=== PATIENT | female | born 2000 | race Caucasian/White ===

== ENCOUNTER 2018-12-30 01:19 | Emergency (ER) | payer OTHER ==
[~2018-12-30] VITALS: Ht 162.6 cm; Wt 77.1 kg
[2018-12-30 01:20] VITALS: BP 158/75
--- NOTE | 2018-12-30 01:20 | NUR ---
ARRIVAL PATIENT PRESENTS VIA WHEELCHAIR WITH COMPLAINTS OF LEFT KNEE PAIN. STATES THAT SHE SAT DOWN AT WORK ~2200 LAST NIGHT AND "HEARD A POP" AND HAS HAD PAIN SINCE. REPORTS THAT SHE TOOK 4 TABLETS OF IBUPROFEN WITHOUT RELIEF. REPORTS PAIN IS 7/10, THROBBING AT THIS TIME. PATIENT STATES THAT SHE IS UNABLE TO BEAR WEIGHT OR MOVE EXTREMITY DUE TO PAIN. VSS. NO DISTRESS NOTED. MD CODY NOTIFIED.
[2018-12-30] MEDS ORDERED: ULTRAM PO STA (01:38)
[2018-12-30] MEDS ORDERED: ULTRAM ONE (01:41)
--- NOTE | 2018-12-30 01:45 | ER.PDOC ---
General Chief Complaint: Extremities Stated Complaint: KNEE PAIN Time seen by MD: 01:43 Source: patient Exam Limitations: no limitations History of Present Illness Initial Comments Left knee pain while sitting down at work. No fall Where: work Context: twist Severity: moderate Allergies: Coded Allergies: No Known Allergies (Unverified , 12/13/14) Past Medical History Medical History: no pertinent history Surgical History: no surgical history Social History Smoking: other Alcohol Use: none Drug Use: none Review of Systems Constitutional: no symptoms reported EENTM: no symptoms reported Respiratory: no symptoms reported Cardiovascular: no symptoms reported Gastrointestinal: no symptoms reported Musculoskeletal: see HPI All Other Systems: Reviewed and Negative Physical Exam General Appearance: Alert, No Apparent Distress Foot: nml inspection, non-tender, nml color/temp, skin intact Ankle: nml inspection, non-tender, nml ROM, no joint swelling, skin intact Knee: tenderness (left without swelling) Thigh/Hip: nml inspection Gait: normal Neuro/Vasc/Tendon: sensation nml, motor nml, no vascular compromise, tendon function nml Skin: warm/dry Head/ENT: nml inspection, pharynx nml Neck/Back: nml inspection, non-tender Abdomen: non-tender, pelvis stable Results/Orders Results/Orders Orders - MARILEE ROSS MD Tramadol Hcl (Ultram) (12/30/18 01:38) Vital Signs Date Time Temp Pulse Resp B/P (MAP) Pulse Ox O2 Delivery O2 Flow Rate FiO2 12/30/18 01:25 97.6 80 18 12/30/18 01:25 97.6 80 18 99 Room Air 12/30/18 01:20 97.6 80 18 158/75 (102) 99 Room Air Departure Time of Disposition: 01:44 Disposition: 01 HOME, SELF-CARE Impression: Primary Impression: Knee pain, left Condition: Stable Additional Instructions: Ice Ibuprofen F/U with your PCP next week Duration or Time Spent with Pa: 20 mins Problem Qualifiers Primary Impression: Knee pain, left Chronicity: acute Qualified Codes: M25.562 - Pain in left knee MARILEE ROSS MD Dec 30, 2018 01:45
[2018-12-30 02:00] VITALS: BP 124/72
--- NOTE | 2018-12-30 02:00 | NUR ---
WORK NOTE PATIENT REQUESTING WORK NOTE TIL MONDAY, EDP STATES SHE IS OK TO GO BACK TO WORK TOMORROW.
[2018-12-30 02:15] VITALS: BP 158/75
== END 2018-12-30 02:10 | disposition home or self-care (01) ==
LOC: ER 01:19
DX: M25.562 Pain in left knee (principal); X50.1XXA Overexertion from prolonged static or awkward postures, initial encounter; Y93.89 Activity, other specified; Y92.69 Other specified industrial and construction area as the place of occurrence of the external cause; Y99.0 Civilian activity done for income or pay
CPT/HCPCS: 99282; 99283

== ENCOUNTER 2021-07-07 20:42 | Emergency (ER) | payer OTHER ==
[~2021-07-07] VITALS: Ht 170.2 cm; Wt 90.7 kg
[2021-07-07 20:50] VITALS: BP 126/61
--- NOTE | 2021-07-07 20:50 | NUR ---
ARRIVAL TAKEN BY WHEELCHAIR TO ROOM. SPOUSE AT BEDSIDE. GAIT STEADY. ALERT AND ORIENTED X3. APPROXIMATELY 20WEEKS (12/16/2020) FELL FROM CHAIR ONTO TAILBONE. C/O PAIN 6/10 ON NUMERICAL SCALE TO TAILBONE. CURRENTLY WORRIED ABOUT D/T FALL. FHT-144BPM.
[2021-07-07 21:14] VITALS: BP 113/67
--- NOTE | 2021-07-07 21:14 | ER.PDOC ---
General Chief Complaint: Requesting Medical Care Stated Complaint: PREG/FALL Time seen by MD: 21:08 Source: patient Exam Limitations: no limitations History of Present Illness Initial Comments Tailbone pain after missed sitting down on a chair and hit her butt on the floor. Patient is 20 weeks . No abdominal pain or vaginal bleeding. Occurred: just prior to arrival Where: home Severity: moderate Context: Lost Balance Associated Symptoms: denies symptoms Allergies: Coded Allergies: No Known Allergies (Unverified , 12/13/14) Past Medical History Medical History: no pertinent history Surgical History: no surgical history Family History Significant Family History: no pertinent family hx Social History Smoking: non-smoker Alcohol Use: none Drug Use: none Review of Systems Constitutional: no symptoms reported Respiratory: no symptoms reported Cardiovascular: no symptoms reported Gastrointestinal: no symptoms reported Musculoskeletal: see HPI All Other Systems: Reviewed and Negative Physical Exam General Appearance: No Apparent Distress, WD/WN Head: No Evidence of Injury Eyes: bilateral eye normal inspection Ears, Nose, Mouth, Throat: Hearing Grossly Normal, No Evidence of ENT Injury, No Dental Injury Neck: Non-Tender, Normal Alignment, Nexus criteria neg, Normal Inspection Cardiovascular/Respiratory: Regular Rate, Rhythm, No M/R/G, Normal Peripheral Pulses, No JVD, Normal Breath Sounds, No Respiratory Distress Gastrointestinal: Normal Bowel Sounds, No Organomegaly, No Pulsatile Mass, Non Tender, Soft Back: Other (tenderness sacrum-coccyx without swelling) Extremities: No Evidence of Injury, Normal Range of Motion, Non-Tender, No Pedal Edema Neurologic/Psychiatric: drop tester II-XII NML as Tested, No Motor/Sensory Deficits, Alert, Normal Mood/Affect, Oriented x 3 Skin: Normal Color, Warm/Dry Adri Coma Score Best Eye Response: (4) Open Spontaneously Best Verbal Response: (5) Oriented Best Motor Response: (6) Obeys Commands Progress Progress heart tones 140s. Patient does not want x-rays because she is . ER DEPART Departure Time of Disposition: 21:12 Disposition: 01 HOME / SELF CARE / HOMELESS Impression: Primary Impression: Contusion of sacrococcygeal region Condition: Stable Referrals: MATHEUS OLIVERA PA-C (PCP) PRIMARY CARE PROVIDER Additional Instructions: Tylenol Follow-up with your OB provider in 2-3 days Return to ED if worsening or concerns Duration or Time Spent with Pa: 10 min Problem Qualifiers Primary Impression: Contusion of sacrococcygeal region Encounter type: initial encounter Qualified Codes: S30.0XXA - Contusion of lower back and pelvis, initial encounter MARILEE ROSS MD Jul 07, 2021 21:14
== END 2021-07-07 21:15 | disposition home or self-care (01) ==
LOC: ER 20:42
DX: O9A.212 Injury, poisoning and certain other consequences of external causes complicating pregnancy, second trimester (principal); S30.0XXA Contusion of lower back and pelvis, initial encounter; Z3A.20 20 weeks gestation of pregnancy; W22.03XA Walked into furniture, initial encounter; Y93.89 Activity, other specified; Y92.89 Other specified places as the place of occurrence of the external cause; Y99.8 Other external cause status
CPT/HCPCS: 99284